=== PATIENT | male | born 1980 | race Caucasian/White ===

== ENCOUNTER 2024-07-20 13:31 | Emergency (ER) | payer MEDICAID ==
[~2024-07-20] VITALS: Ht 177.8 cm; Wt 79.4 kg
[2024-07-20 14:41] VITALS: BP 149/95; TEMP 97.6; O2SAT 99
== END 2024-07-20 14:42 | disposition home or self-care (01) ==
LOC: ER 13:35
DX: B34.9 Viral infection, unspecified (principal); R05.9 Cough, unspecified; R25.1 Tremor, unspecified; F17.200 Nicotine dependence, unspecified, uncomplicated; K21.9 Gastro-esophageal reflux disease without esophagitis; Z88.0 Allergy status to penicillin